=== PATIENT | female | born 1990 | race Caucasian/White ===

== ENCOUNTER 2018-11-12 10:46 | Emergency (ER) | payer OTHER ==
[~2018-11-12] VITALS: Ht 167.6 cm; Wt 63.5 kg
[2018-11-12] MEDS ORDERED: IRON236 MG (11:12)
[2018-11-12] MEDS ORDERED: CORTISONE60 GM TOP (13:27)
== END 2018-11-12 13:46 | disposition home or self-care (01) ==
LOC: ER 10:46
DX: S20.462A Insect bite (nonvenomous) of left back wall of thorax, initial encounter (principal); S20.461A Insect bite (nonvenomous) of right back wall of thorax, initial encounter; S80.862A Insect bite (nonvenomous), left lower leg, initial encounter; S80.861A Insect bite (nonvenomous), right lower leg, initial encounter; W57.XXXA Bitten or stung by nonvenomous insect and other nonvenomous arthropods, initial encounter; Y93.89 Activity, other specified; Y92.833 Campsite as the place of occurrence of the external cause; Y99.8 Other external cause status

== ENCOUNTER 2018-11-30 19:42 | Emergency (ER) | payer OTHER ==
[~2018-11-30] VITALS: Ht 165.1 cm; Wt 67.1 kg
[~2018-11-30 19:42] MED LIST: CORTISONE60 GM TOP; IRON236 MG
== END 2018-11-30 23:43 | disposition home or self-care (01) ==
LOC: ER 19:42
DX: L08.89 Other specified local infections of the skin and subcutaneous tissue (principal); R21 Rash and other nonspecific skin eruption

== ENCOUNTER 2019-03-26 15:07 | Emergency (ER) | payer OTHER ==
[~2019-03-26] VITALS: Ht 170.2 cm; Wt 69.9 kg
== END 2019-03-26 19:17 | disposition home or self-care (01) ==
LOC: ER 15:07
DX: L20.89 Other atopic dermatitis (principal)

== ENCOUNTER 2024-04-13 08:03 | Emergency (ER) | payer OTHER ==
[~2024-04-13] VITALS: Ht 167.6 cm; Wt 64.0 kg
[2024-04-13] MEDS ORDERED: KETOROLAC TROMETHAMINE 60 MG VIAL IM ONE ×2 (08:45→08:46)
[2024-04-13] MEDS ORDERED: DICLOFENAC SODI75 MG PO (09:23)
== END 2024-04-13 09:26 | disposition home or self-care (01) ==
LOC: ER 08:06
DX: S99.821A Other specified injuries of right foot, initial encounter (principal); X83.8XXA Intentional self-harm by other specified means, initial encounter; Y93.89 Activity, other specified; Y92.89 Other specified places as the place of occurrence of the external cause; Y99.8 Other external cause status; Z88.8 Allergy status to other drugs, medicaments and biological substances
CPT/HCPCS: 73630; 96372; 99283; J1885

== ENCOUNTER 2024-05-06 14:53 | Emergency (ER) | payer OTHER ==
[~2024-05-06] VITALS: Ht 167.6 cm; Wt 63.9 kg
[~2024-05-06 14:53] MED LIST changes: +DICLOFENAC SODI75 MG PO
== END 2024-05-06 19:20 | disposition home or self-care (01) ==
LOC: ER 14:53
DX: S92.911A Unspecified fracture of right toe(s), initial encounter for closed fracture (principal); X58.XXXA Exposure to other specified factors, initial encounter; Y93.89 Activity, other specified; Y92.89 Other specified places as the place of occurrence of the external cause; Y99.8 Other external cause status; Z88.8 Allergy status to other drugs, medicaments and biological substances

== ENCOUNTER 2024-06-01 14:46 | Outpatient (CLI) | payer OTHER | END 2024-06-01 14:55 | disposition home or self-care (01) | LOC: RAD 14:46 | PROVIDERS: ATTEND Orthopaedic Surgery | DX: M79.671 Pain in right foot (principal) ==